=== PATIENT | male | born 1980 | race Caucasian/White ===

== ENCOUNTER 2020-10-13 15:01 | Emergency (ER) | payer SELFPAY ==
[2020-10-13] MEDS ORDERED: INSULIN -REGULAR HUMAN 50 UNIT/0.5 ML ML ONE (15:48)
[2020-10-13] MEDS ORDERED: NA CHLORIDE 0.9% 2,000 ML ONE (15:48)
[2020-10-13 15:50] LABS: Arterial Blood Carboxyhemoglob 1.4 % (0-1.5); Blood Gas Oxyhemoglobin 94.7 % (94-97); Blood O2 Saturation 97.2 % (92-98.5)
[2020-10-13 16:05] LABS: ALT/SGPT 32 U/L (12-78); AST/SGOT 13 U/L (15-37); Alkaline Phosphatase 151 U/L (45-117); BUN Blood Urea Nitrogen 40 mg/dL (7-18); Bilirubin Direct 0.1 mg/dL (0-0.2); Bilirubin Total 0.6 mg/dL (0.2-1.0); Magnesium 2.7 mg/dL (1.8-2.4); NT PRO-BNP 130 pg/mL (<125); Protein, Total 8.2 g/dL (6.4-8.2); Sodium Level 126 mmol/L (136-145); Troponin (Emerg Dept Use Only) < 0.02 ng/mL (0.0-0.045)
--- NOTE | 2020-10-13 16:05 | RAD REPORT ---
EXAM DESCRIPTION: Junaid Single View10/13/2020 3:54 pm CLINICAL HISTORY: Hyperglycemia. Vomiting. COMPARISON: none FINDINGS: The lungs appear clear of acute infiltrate. The heart is normal size IMPRESSION: No acute abnormalities displayed
[2020-10-13 16:06] LABS: Bicarbonate 4 mmol/L (21-32); Glucose Level 923 mg/dL (74-106); Potassium 6.4 mmol/L (3.5-5.1)
[2020-10-13] MEDS ORDERED: SODIUM BICARB 50 MEQ/50ML VIAL ONE (16:11)
[2020-10-13 16:23] LABS: Absolute Lymphocytes (CBC) 0.8 K/uL (0.7-4.9); Basophils % 1.2 % (0-1.3); Lymphocytes % 4.2 % (15.3-44.8); MPV 8.5 fL (7.6-11.3)
[2020-10-13] MEDS ORDERED: GLUCAGON 1 MG/VIAL IM PRN (16:36)
[2020-10-13] MEDS ORDERED: D50W 25 GM/50 ML SYRINGE IV PRN (16:36)
[2020-10-13] MEDS ORDERED: MORPHINE 4 MG/ML SYR ONE ×2 (16:43→16:53)
[2020-10-13] MEDS ORDERED: ONDANSETRON 4 MG/2 ML VIAL ONE ×2 (16:44→16:53)
[2020-10-13] MEDS ORDERED: INSULIN -REGULAR HUMAN 100 UNIT in NA CHLORIDE 0.9% 100 ML IV SCH (16:45)
[2020-10-13] MEDS ORDERED: WATER FOR INJ,STERILE 1,000 ML with NA BICARB 8.4% 150 MEQ IV SCH ×2 (17:00)
[2020-10-13] MEDS ORDERED: IPRATROPIUM BROM 0.5MG/2.5ML ONE (17:20)
[2020-10-13] MEDS ORDERED: ALBUTEROL 2.5 MG/3 ML NEB SOL ONE (17:21)
[2020-10-13] MEDS ORDERED: CALCIUM GLUCONATE 1 GM IVPB 1 GM/50 ML BAG IV ONE (17:21)
--- NOTE | 2020-10-13 18:17 | ER ---
Nurse's Notes [facility] Name: Hank Parmar Age: 39 yrs Sex: Male : 1980 Arrival Date: 10/13/2020 Time: 15:20 Bed 7 Private MD: Diagnosis: DKA Presentation: 10/13 15:20 Chief complaint: EMS states: Toned out by PD due to pt not acting right, BGL on arrival jl7 read high, pt with 42 RR, pt's friend reported he hasn't been feeling well for 2 days now. 15:20 Coronavirus screen: Client denies travel out of the [place] in the last 14 days. At this jl7 time, the client does not indicate any symptoms associated with coronavirus-19. Ebola Screen: No symptoms or risks identified at this time. Initial Sepsis Screen: Does the patient meet any 2 criteria? RR > 20 per min. HR > 90 bpm. Does the patient have a suspected source of infection? No. Patient's initial sepsis screen is negative. Risk Assessment: Do you want to hurt yourself or someone else? Patient reports no desire to harm self or others. Onset of symptoms was October 12, 2020. Care prior to arrival: None. Transition of care: patient was not received from another setting of care. 15:20 Method Of Arrival: EMS: [facility] 15:20 Acuity: BRYN 2 jl7 Triage Assessment: 15:20 General: Appears distressed, ill, unkempt, Behavior is anxious, restless, jl7 uncooperative. Pain: Complains of pain in back. EENT: Oral mucosa is dry. Neuro: Level of Consciousness is awake, alert, confused, Oriented to person, place. Cardiovascular: Patient's skin is warm and dry. Respiratory: Airway is patent Respiratory effort is even, unlabored, with nasal flaring, Respiratory pattern is symmetrical, [place]. GI: No signs and/or symptoms were reported involving the gastrointestinal system. : No signs and/or symptoms were reported regarding the genitourinary system. Derm: Skin is dry, Skin is pale, Skin temperature is cool. Historical: - Allergies: 16:16 No Known Allergies; jl7 - PMHx: 16:16 Diabetes - IDDM; Hypertension; jl7 - Immunization history:: Adult Immunizations unknown. - Social history:: Smoking status: Patient denies any tobacco usage or history of. Screenin:00 Abuse screen: Denies threats or abuse. Denies injuries from another. Nutritional jl7 screening: No deficits noted. Tuberculosis screening: No symptoms or risk factors identified. Fall Risk No fall in past 12 months (0 pts). No secondary diagnosis (0 pts). IV access (20 points). Ambulatory Aid- None/Bed Rest/Nurse Assist (0 pts). Gait- Impaired (20 pts.). Mental Status- Overestimates/Forgets Limitations (15 pts.). Total Roque Fall Scale indicates High Risk Score (45 or more points). Fall prevention measures have been instituted. Side Rails Up X 2 Placed Close to Nursing Station Frequent Obs/Assessments Occuring As available patient and family educated on Fall Prevention Program and Strategies. Assessment: 15:20 General: See triage assessment. jl7 16:30 Reassessment: Pt c/o back pain, reports it's chronic, unable to be still due to pain, jl7 ERD notified, see [facility] for orders. 16:35 Reassessment: Pt pulled left AC IV while giving administering morphine and Zofran. jl7 Charge nurse at bedside. 16:50 Reassessment: Pt's bedding changed, pt laced in brief, IV to right hand and right FA jl7 placed, medicated as ordered. 18:36 Reassessment: EMS at bedside to transport pt, pt pulled right FA IV, Right EJ placed jl7 by PRIYA Rosales. Vital Signs: 15:20 BP 156 / 75; Pulse 133; Resp 45; Temp 97.9; Pulse Ox 100% ; Weight 97.52 kg; Pain 10/10;jl7 15:40 BP 122 / 104; Pulse 138; Resp 32; Pulse Ox 100% ; jl7 16:50 BP 128 / 61; Pulse 131; Resp 26; Pulse Ox 100% ; jl7 17:00 BP 129 / 73; Pulse 133; Resp 27; Pulse Ox 100% ; jl7 18:00 BP 145 / 70; Pulse 140; Resp 29; Pulse Ox 100% ; jl7 ED Course: 15:20 Patient arrived in ED. em1 15:20 Marco Osorio MD is Attending Physician. kdr 15:20 ekg monitor tech on. Pulse ox on. NIBP on. jl7 15:30 Inserted saline lock: 24 gauge in right hand, using aseptic technique. jl7 15:32 Nura Cedeño, PRIYA is Primary Nurse. jl7 15:40 Initial lab(s) drawn, by me, sent to lab. EKG done, by ED staff, reviewed by Marco Osorio MD. Inserted saline lock: 22 gauge in left antecubital area, using aseptic technique. Blood collected. 15:55 XRAY Chest (1 view) In Process Unspecified. EDMS 16:00 Patient has correct armband on for positive identification. Placed in gown. Bed in low jl7 position. Call light in reach. Side rails up X2. 16:06 Notified ED physician of a critical lab result(s). Bicarb 4, 923 Glucose, and potassium aa5 6.4. 16:13 Triage completed. jl7 16:16 Arm band placed on right wrist. jl7 16:40 Inserted saline lock: 24 gauge in right hand, using aseptic technique. jl7 16:45 Inserted saline lock: 22 gauge in right forearm, using aseptic technique. ,using jl7 aseptic technique. inserted by PRIYA Sterling. 18:20 Inserted saline lock: 18 gauge in right EJ, using aseptic technique. ,using aseptic jl7 technique. inserted by PRIYA Rosales. 18:39 No provider procedures requiring assistance completed. Patient transferred, IV remains jl7 in place. intact, No redness/swelling at site. Administered Medications: 15:45 Drug: Insulin Regular Human 10 units {Co-Signature: bp (Bobby Connolly RN).} Route: IVP; jl7 Site: left antecubital; 15:45 Drug: NS 0.9% 2000 ml Route: IV; Rate: 1 bolus; Site: left antecubital; jl7 16:50 Drug: morphine 4 mg Route: IVP; Site: right forearm; jl7 17:00 Follow up: Response: No adverse reaction; Pain is decreased jl7 16:50 Drug: Zofran (Ondansetron) 4 mg Route: IVP; Site: right forearm; jl7 17:53 Follow up: Response: No adverse reaction jl7 16:55 Drug: Insulin Drip - (Insulin Regular Human 100 units, NS 0.9% 100 ml) {Co-Signature: ynes bp (Bobby Connolly RN).} Route: IV; Rate: calculated rate; Site: right hand; 18:41 Follow up: IV Status: Infusion continued upon transfer jl7 17:00 Drug: Calcium Gluconate 1 grams Route: IVPB; Infused Over: 60 mins; Site: right forearm;7 18:00 Follow up: Response: No adverse reaction; IV Status: Completed infusion jl7 17:05 Drug: Albuterol - atroVENT (3:1) (2.5 mg - 0.5 mg) 3 ml Route: Nebulizer; 7 17:52 Follow up: Response: No adverse reaction [facility] Outcome: 18:16 ER care complete, transfer ordered by . [facility] 18:41 Transferred by ground EMS to [facility], Transfer form completed. [facility] 18:41 Condition: stable 18:41 Discharge instructions given to patient, Instructed on the need for transfer, Demonstrated understanding of instructions. 18:41 Patient left the ED. 7 Signatures: Dispatcher [employer] EDMS Marco Osorio MD MD kdr Martinez, Eric em1 Hallie Aguilar, PRIYA RN aa5 Nura Cedeño RN RN jl7 Bobby Connolly RN bp
--- NOTE | 2020-10-13 18:17 | EDPHYS ---
Physician Documentation [facility] Name: Hank Parmar Age: 39 yrs Sex: Male : 1980 Arrival Date: 10/13/2020 Time: 15:20 Bed 7 Private MD: ED Physician Marco Osorio HPI: 10/13 15:24 This 39 yrs old Male presents to ER via Unassigned with complaints of AMS/DKA. kdr 15:24 This 39 yrs old Male presents to ER via Unassigned with unknown complaint. kdr 15:36 The patient presents with agitation, confusion, decreased mental status. Onset: The kdr symptoms/episode began/occurred gradually, 4 day(s) ago. Possible causes: High blood sugar. Associated signs and symptoms: Pertinent positives: agitation, lightheadedness, nausea, vomiting, weakness. Current symptoms: In the emergency department the patient's symptoms are unchanged from the initial presentation. Patient's baseline: Neuro: alert and fully oriented, Motor: no deficits, Ambulation: walks without assistance, Speech: normal. The patient has experienced similar episodes in the past, Sates he had to be intubated priviously.. 17:47 Police were at the patient's home to reportedly serve a warrant when they noted that he kdr appeared ill and called EMS. EMS arrived and noted that he appeared to be in DKA. On arrival to the ED, the patient was in moderate to severe distress and was slightly disoriented and obtunded but was able to follow commands and respond to questions. Historical: - Allergies: 16:16 No Known Allergies; jl7 - PMHx: 16:16 Diabetes - IDDM; Hypertension; jl7 - Immunization history:: Adult Immunizations unknown. - Social history:: Smoking status: Patient denies any tobacco usage or history of. ROS: 17:47 Constitutional: Negative for fever, chills, and weight loss, Eyes: Negative for injury, kdr pain, redness, and discharge, Neck: Negative for injury, pain, and swelling, Abdomen/GI: Negative for abdominal pain, nausea, vomiting, diarrhea, and constipation, Back: Negative for injury and pain, : Negative for injury, bleeding, discharge, and swelling, MS/Extremity: Negative for injury and deformity, Skin: Negative for injury, rash, and discoloration, Psych: Negative for depression, anxiety, suicide ideation, homicidal ideation, and hallucinations, Allergy/Immunology: Negative for hives, rash, and allergies, Hematologic/Lymphatic: Negative for swollen nodes, abnormal bleeding, and unusual bruising. 17:47 Cardiovascular: Positive for palpitations, Negative for chest pain, edema. 17:47 Respiratory: Positive for dyspnea on exertion, shortness of breath, at rest. Moderate respiratory distress, Negative for hemoptysis, orthopnea, sputum production. 17:47 Neuro: Positive for altered mental status, weakness. 17:47 Allergy/Immunology: Positive for 17:47 Endocrine: Positive for polyuria, Negative for cold intolerance, heat intolerance, polyphagia, weight gain, weight loss. Exam: 15:30 Constitutional: This is a well developed, well nourished patient who is awake, alert, kdr and in acute distress. Head/Face: Normocephalic, atraumatic. Eyes: Pupils equal round and reactive to light, extra-ocular motions intact. Lids and lashes normal. Conjunctiva and sclera are non-icteric and not injected. Cornea within normal limits. Periorbital areas with no swelling, redness, or edema. Neck: Trachea midline, no thyromegaly or masses palpated, and no cervical lymphadenopathy. Supple, full range of motion without nuchal rigidity, or vertebral point tenderness. No Meningismus. Chest/axilla: Normal chest wall appearance and motion. Nontender with no deformity. No lesions are appreciated. Abdomen/GI: Soft, non-tender, with normal bowel sounds. No distension or tympany. No guarding or rebound. No evidence of tenderness throughout. Back: No spinal tenderness. No costovertebral tenderness. Full range of motion. Skin: Warm, dry with normal turgor. Normal color with no rashes, no lesions, and no evidence of cellulitis. MS/ Extremity: Pulses equal, no cyanosis. Neurovascular intact. Full, normal range of motion. Neuro: Awake and alert, GCS 15, oriented to person, place, time, and situation. Cranial nerves II-XII grossly intact. Motor strength 5/5 in all extremities. Sensory grossly intact. Cerebellar exam normal. Normal gait. Psych: Awake, alert, with orientation to person, place and time. Behavior, mood, and affect are within normal limits. 15:30 Cardiovascular: Rate: tachycardic, Rhythm: regular, Pulses: no pulse deficits are appreciated, Heart sounds: normal, Edema: is not appreciated. 15:30 ECG was reviewed by the Attending Physician. Vital Signs: 15:20 BP 156 / 75; Pulse 133; Resp 45; Temp 97.9; Pulse Ox 100% ; Weight 97.52 kg; Pain 10/10;jl7 15:40 BP 122 / 104; Pulse 138; Resp 32; Pulse Ox 100% ; jl7 16:50 BP 128 / 61; Pulse 131; Resp 26; Pulse Ox 100% ; jl7 17:00 BP 129 / 73; Pulse 133; Resp 27; Pulse Ox 100% ; jl7 18:00 BP 145 / 70; Pulse 140; Resp 29; Pulse Ox 100% ; jl7 MDM: 15:30 Data reviewed: vital signs, nurses notes, lab test result(s), radiologic studies. kdr Counseling: I had a detailed discussion with the patient and/or guardian regarding: the historical points, exam findings, and any diagnostic results supporting the discharge/admit diagnosis, lab results, radiology results, the need for further work-up and treatment in the hospital. 17:47 ED course: The patient's mental status appears to be improving as well as VS. kdr 18:16 Patient medically screened. kdr 10/13 15:23 Order name: Basic Metabolic Panel; Complete Time: 16:12 kdr 10/13 15:23 Order name: CBC with Diff kdr 10/13 15:23 Order name: LFT's; Complete Time: 16:12 kdr 10/13 15:23 Order name: Magnesium; Complete Time: 16:12 kdr 10/13 15:23 Order name: NT PRO-BNP; Complete Time: 16:12 kdr 10/13 15:23 Order name: Troponin (emerg Dept Use Only); Complete Time: 16:12 kdr 10/13 15:23 Order name: ABG; Complete Time: 16:12 kdr 10/13 15:26 Order name: Glucose; Complete Time: 16:12 bp 10/13 15:39 Order name: Glucose, Ancillary Testing; Complete Time: 16:12 EDMS 10/13 17:36 Order name: Lactate kdr 10/13 17:36 Order name: Ketone, Serum kdr 10/13 18:03 Order name: Glucose bp 10/13 15:23 Order name: XRAY Chest (1 view); Complete Time: 16:12 kdr 10/13 15:23 Order name: EKG; Complete Time: 15:24 kdr 10/13 15:23 Order name: Cardiac monitoring; Complete Time: 15:26 kdr 10/13 15:23 Order name: EKG - Nurse/Tech; Complete Time: 15:45 kdr 12 15:23 Order name: IV Saline Lock; Complete Time: 15:45 kdr 10/13 15:23 Order name: Labs collected and sent; Complete Time: 15:45 kdr 10/13 15:23 Order name: O2 Per Protocol; Complete Time: 15:45 kdr 10/13 15:23 Order name: O2 Sat Monitoring; Complete Time: 15:45 kdr 10/13 18:13 Order name: Glucose, Ancillary Testing EDMS EC:30 Rate is 130 beats/min. Rhythm is regular, Sinus tachycardia with No ectopy. QRS [place] is kdr Normal. VT interval is normal. QRS interval is normal. QT interval is normal. Clinical impression: NSR w/ Non-specific ST/T Changes. Administered Medications: 15:45 Drug: Insulin Regular Human 10 units {Co-Signature: bp (Bobby Connolly RN).} Route: IVP; Site: left antecubital; 15:45 Drug: NS 0.9% 2000 ml Route: IV; Rate: 1 bolus; Site: left antecubital; 16:50 Drug: morphine 4 mg Route: IVP; Site: right forearm; jl7 17:00 Follow up: Response: No adverse reaction; Pain is decreased 7 16:50 Drug: Zofran (Ondansetron) 4 mg Route: IVP; Site: right forearm; jl7 17:53 Follow up: Response: No adverse reaction 7 16:55 Drug: Insulin Drip - (Insulin Regular Human 100 units, NS 0.9% 100 ml) {Co-Signature: [facility] bp (Bobby Connolly RN).} Route: IV; Rate: calculated rate; Site: right hand; 18:41 Follow up: IV Status: Infusion continued upon transfer jl7 17:00 Drug: Calcium Gluconate 1 grams Route: IVPB; Infused Over: 60 mins; Site: right forearm;[facility] 18:00 Follow up: Response: No adverse reaction; IV Status: Completed infusion 7 17:05 Drug: Albuterol - atroVENT (3:1) (2.5 mg - 0.5 mg) 3 ml Route: Nebulizer; jl7 17:52 Follow up: Response: No adverse reaction jl7 Disposition: 10/13/20 18:16 Transfer ordered to [facility]. Diagnosis is DKA. - Reason for transfer: Higher level of care. - Accepting physician is Anibal. - Condition is Serious. - Problem is new. - Symptoms have improved. Signatures: Dispatcher [employer] EDOH Marco Osoroi MD MD kdr Hallie Aguilar RN RN aa5 Nura Cedeño RN RN jl7 Bobby Connolly RN bp Corrections: (The following items were deleted from the chart) 18:27 16:40 CORONAVIRUS+MR.LAB.BRZ ordered. [facility] 18:41 18:16 10/13/2020 18:16 Transfer ordered to [facility]. jl7 Diagnosis is DKA. Reason for transfer: Higher level of care. Accepting physician is Anibal. Condition is Serious. Problem is new. Symptoms have improved. kdr
[2020-10-13 21:30] LABS: Blood Morphology Comment NOT SEEN (NOT SEEN); Platelet Estimate ADEQ
--- NOTE | 2020-10-14 13:40 | EKG ---
Test Date: 2020-10-13 Test Time: 15:27:37 Engraver Seals: JANET MEASUREMENT RESULTS: Intervals: Rate: 129 AR: 134 QRSD: 102 QT: 408 QTc: 597 New Site: P: 70 AR: 134 QRS: 55 T: 74 INTERPRETIVE STATEMENTS: Poor data quality, interpretation may be adversely affected Sinus tachycardia Right atrial enlargement Borderline ECG No previous ECG available for comparison Electronically Signed On 10-14-20 13:37:10 INDUCTOR TESTER by Phani Kerr
--- NOTE | 2020-10-15 20:05 | EKG ---
Test Date: 2020-10-13 Test Time: 15:28:27 Airport Planner: JANET MEASUREMENT RESULTS: Intervals: Rate: 130 TX: 130 QRSD: 100 QT: 312 QTc: 459 [place]: P: 73 TX: 130 QRS: 59 T: 77 INTERPRETIVE STATEMENTS: Sinus tachycardia Right atrial enlargement Borderline ECG Compared to ECG 10/13/2020 15:27:37 No significant changes Electronically Signed On 10-15-20 20:02:50 NEWSWRITER by Phani Kerr
== END 2020-10-13 18:41 | disposition short-term general hospital (02) ==
LOC: ER 15:01
DX: E11.10 Type 2 diabetes mellitus with ketoacidosis without coma (principal); I10 Essential (primary) hypertension; Z20.828 Contact with and (suspected) exposure to other viral communicable diseases
CPT/HCPCS: 36415; 71045; 80048; 80076; 82010; 82805; 82947; 83605; 83735; 83880; 84484; 85025; 93005; 99285; J0610; J2405; J7030; U0003